=== PATIENT | male | born 1960 | race Caucasian/White ===

== ENCOUNTER 2025-01-19 18:26 | Emergency (ER) | payer OTHER ==
[~2025-01-19] VITALS: Ht 165.1 cm; Wt 77.0 kg
[2025-01-19 18:40] VITALS: O2SAT 98
[2025-01-19 18:47] VITALS: BP 185/113; PULSE 92; RESP 20; TEMP 36.8; O2SAT 97
[2025-01-19 19:34] LABS: BASOPHILS % 1.1 % (0.0-2.0); EOSINOPHILS % 1.9 % (0.0-5.0); HEMATOCRIT. 51.2 % (42.0-52.0); HEMOGLOBIN. 17.2 g/dL (14.0-18.0); LYMPHOCYTES % 41.7 % (20.0-50.0); MEAN CORPUSCULAR HGB CONC 33.6 g/dL (31.0-37.0); MEAN CORPUSCULAR VOLUME 86.2 fL (80.0-94.0); MEAN PLATELET VOLUME 9.2 fl (7.4-10.4); MONOCYTES % 8.7 % (2.0-8.0); NEUTROPHILS % 46.6 % (40.0-76.0); PLATELET 259 x1000/uL (130-400); RED BLOOD CELL COUNT 5.94 mill/uL (4.7-6.1); RED CELL DISTRIBUTION WIDTH 13.8 % (11.6-14.6); WHITE BLOOD COUNT 11.3 x1000/uL (4.5-11.0)
[2025-01-19 19:36] LABS: POTASSIUM 4.1 mEq/L (3.5-5.1)
[2025-01-19 19:38] LABS: CALCIUM 9.5 mg/dL (8.7-10.4)
[2025-01-19 19:42] LABS: CREATININE 1.6 mg/dL (0.6-1.3)
[2025-01-19] MEDS ORDERED: METF-1149 MT (23:06)
[2025-01-19] MEDS: INSULIN REGULAR (HUMULIN R) 1000UNITS/10ML VIAL SUBCUT ONE (23:17)
== END 2025-01-19 23:19 | disposition home or self-care (01) ==
LOC: ER 18:26
DX: E11.65 Type 2 diabetes mellitus with hyperglycemia (principal)
CPT/HCPCS: 99283; 80048; 82962; 85025; 36415; 96372; J1815